=== PATIENT | female | born 2000 | race Caucasian/White ===

== ENCOUNTER 2023-05-10 10:30 | Outpatient (CLI) | payer BC ==
[2023-05-10 09:05] LABS: BILIRUBIN,URINE NEGATIVE (NEGATIVE); GLUCOSE, URINE (UA) NEGATIVE (NEGATIVE); KETONES,URINE (UA) NEGATIVE (NEGATIVE); LEUKOCYTE ESTERASE, URINE NEGATIVE (NEGATIVE); NITRITE,URINE NEGATIVE (NEGATIVE); OCCULT BLOOD,URINE NEGATIVE (NEGATIVE); PH,URINE 7.5 PH (5.0-7.5); PROTEIN,URINE NEGATIVE (NEGATIVE); UROBILINOGEN,URINE 0.2 (NORMAL) E.U./dL (NORMAL)
[2023-05-10 09:11] LABS: CLARITY,URINE CLEAR (CLEAR)
[2023-05-10 09:18] LABS: BACTERIA,URINE Moderate /HPF (None Seen); RBC,URINE 0-5 /HPF (0-5); SQUAMOUS EPITHELIAL CELL,UR MOD Squamous (<= Few); WBC,URINE 0-3 /HPF (0-5)
== END 2023-05-10 23:59 | disposition home or self-care (01) ==
LOC: LAB.WC 10:30
PROVIDERS: ATTEND Obstetrics & Gynecology
DX: Z34.90 Encounter for supervision of normal pregnancy, unspecified, unspecified trimester (principal)
CPT/HCPCS: 81001; 87086

== ENCOUNTER 2023-05-26 12:45 | Outpatient (CLI) | payer BC ==
--- NOTE | 2023-05-26 16:19 | Ultrasound Report ---
PROCEDURE: OB First Trimester INDICATIONS: POSITIVE TEST OUTSIDE/PRIOR DATING DATA: Last menstrual period (LMP): 02/20/2023. LMP-based estimated date of delivery (RANDALL): 11/27/2023. First dating scan (date and location): 05/26/2023. Estimated date of delivery (RANDALL) from first dating scan: 11/26/2023. TECHNIQUE: Real-time scanning was performed of the fetus and maternal pelvic organs, with image documentation. COMPARISON: None FINDINGS: Intrauterine gestational sac present. Embryo: Single live intrauterine is identified with crown-rump length measuring 7.7 cm cor responding to 13 weeks 5 days Heart rate: 143 bpm. Other: No perigestational fluid collection. Measurement variability in dating: +/- 4 weeks by LMP, +/- 7 days by mean sac diameter (use before 6 weeks gestation if crown-rump length not able to be measured), +/- 5 days by crown-rump length (6-12 weeks gestation). Maternal organs: Ovaries appear within normal limits. IMPRESSION: Single live intrauterine with ultrasound gestational age of 13 weeks 5 days. Recommend follow-up imaging at 20-22 weeks for dates and anatomy. Reviewed by: Nilda Garcia MD on 05/26/2023 4:18 PM PDT Approved by: Nilda Garcia MD on 05/26/2023 4:18 PM PDT Station ID: [id number]
== END 2023-05-26 12:46 | disposition home or self-care (01) ==
LOC: DI 12:45
PROVIDERS: ATTEND Obstetrics & Gynecology
DX: Z34.91 Encounter for supervision of normal pregnancy, unspecified, first trimester (principal)